=== PATIENT | female | born 1980 | race Caucasian/White ===

== ENCOUNTER 2018-11-07 08:37 | Inpatient (IN) | payer MEDICAID ==
[~2018-11-07] VITALS: Ht 152.4 cm; Wt 89.8 kg
[2018-11-07 08:37] VITALS: BP 164/109
--- NOTE | 2018-11-07 08:37 | NUR ---
BIBA FOR C/O ADULT ASTHMA EXACERBATION. PT 92% ON ROOM AIR AT HOME, TRIED TO MANAGE SYMPMTOMS AT HOME. PT PLACED ON CPAP IN FIELD AND GIVEN ALBUTEROL AND ATROVENT TREATMENT AND SATURATIONS AT 99% UPON ARRIVAL. PT TACHYCARDIC UPON ARRIVAL TO ED AT 133 WITH ELEVATED BP 164/109. PIV ESTABLISHED IN THE FIELD, 18G. LUNGS SOUNDS DIMINSHED, AUDIBLE WHEEZES NOTED.
[2018-11-07 08:39] VITALS: BP 164/109
[2018-11-07] MEDS ORDERED: methylPREDNISolone SS 125 MG/2 ML VIAL IVP ONE (08:40)
[2018-11-07] MEDS ORDERED: MAG SULF 2000 MG/WATER PREMIX 50 ML IV ONE ×2 (08:40→08:53)
[2018-11-07] MEDS ORDERED: NACL 0.9% 1,000 ML IV ONE (08:40)
[2018-11-07] MEDS ORDERED: ALBUTEROL SULFATE/IPRATROPIU 3 ML SOL IH ONE ×2 (08:45→13:40)
--- NOTE | 2018-11-07 08:48 | NUR ---
XRAY AT BEDSIDE
[2018-11-07] MEDS ORDERED: methylPREDNISolone SS 125 MG/2 ML VIAL ONE (08:51)
--- NOTE | 2018-11-07 09:00 | NUR ---
LAB AT BEDSIDE
--- NOTE | 2018-11-07 09:11 | NUR ---
ABG RESULTS GIVEN TO PHYSICIAN STATES NO CHANGES TO BIPAP AT THIS TIME. WILL CONTINUE TO MONITOR.
[2018-11-07 09:23] LABS: BASOPHILS % (AUTO) 0.3 % (0.0-2.0); EOSINOPHILS # (AUTO) 0.8 K/uL (0-0.4); EOSINOPHILS % (AUTO) 6.5 % (0.0-4.0); HEMATOCRIT 40.1 % (36-48); HEMOGLOBIN 12.9 g/dL (12.0-16.0); LYMPHOCYTES # (AUTO) 4.7 K/uL (2.5-16.5); MEAN CORPUSCULAR HEMOGLOBIN 25 pg (27-31); MEAN CORPUSCULAR HGB CONC 32 g/dL (33-37); MEAN CORPUSCULAR VOLUME 78.6 fL (80-94); MONOCYTES # (AUTO) 0.8 K/uL (0.8-1.0); MONOCYTES % (AUTO) 6.2 % (1.7-9.3); NEUTROPHILS # (AUTO) 6.1 K/uL (1.8-7.7); PLATELET COUNT (AUTO) 294 K/uL (140-450); RED BLOOD CELL COUNT(AUTO) 5.11 MIL/uL (4.20-5.40); RED CELL DISTRIBUTION WIDTH 14.3 % (11.6-13.7); WHITE BLOOD COUNT (AUTO) 12.4 K/uL (4.8-10.8)
--- NOTE | 2018-11-07 09:30 | NUR ---
TALKED TO PT'S BROTHER ON THE PHONE. UPDATED HIM ON PT'S STATUS. PT ALERT AND AND TO TALK, BREATHING LABORED BUT PT ABLE TO COMMUNICATE AT THIS TIME WITH SHORT SENTENCES.
--- NOTE | 2018-11-07 09:32 | NUR ---
UNABLE TO OBTAIN URINE SAMPLE AT THIS TIME.
[2018-11-07 09:34] LABS: ANION GAP 9.6 (8-16); CARBON DIOXIDE 26.3 mmol/L (21-32); CREATININE 0.6 mg/dL (0.6-1.3); POTASSIUM 3.9 mmol/L (3.5-5.1)
[2018-11-07 09:41] LABS: TOTAL BILIRUBIN 0.3 mg/dL (0.0-1.0)
[2018-11-07 09:47] LABS: PROTHROMBIN TIME 9.7 secs (10.8-13.4)
[2018-11-07] MEDS ORDERED: HYDROcodone/APAP 5/325 MG 1 TAB TAB PO PRN ×2 (10:20→20:00)
[2018-11-07] MEDS ORDERED: DOCUSATE SODIUM 100 MG GELCAP PO PRN (10:20)
[2018-11-07] MEDS ORDERED: ACETAMINOPHEN 325 MG TAB PO PRN (10:20)
[2018-11-07] MEDS ORDERED: MORPHINE SULFATE 2 MG/ML SYR IVP PRN (10:20)
[2018-11-07] MEDS ORDERED: LORazepam 2 MG/ML VIAL IM/IVP PRN (10:20)
[2018-11-07] MEDS ORDERED: ONDANSETRON 4 MG/2 ML VIAL IM/IVP PRN (10:20)
[2018-11-07] MEDS ORDERED: ZOLPIDEM 5 MG TAB PO PRN (10:20)
--- NOTE | 2018-11-07 10:45 | NUR ---
URINE SAMPLE COLLECTED VIA BEDPAN
[2018-11-07 11:02] LABS: CHOL/HDL RATIO 1.7 (1-4.5); MAGNESIUM 1.6 mg/dL (1.8-2.4)
[2018-11-07 11:03] LABS: FREE T4 (FREE THYROXINE) 0.98 ng/dL (0.76-1.46); THYROID STIMULATING HORMONE 5.45 uIU/mL (0.34-3.74)
--- NOTE | 2018-11-07 11:05 | NUR ---
Patient will be admitted to care of DR BIRMINGHAM. Admited to TELE. Will go to room 110A. Belongings list completed. Report to BRANDON COSTA.
[2018-11-07 11:11] VITALS: BP 151/91
[2018-11-07 11:14] LABS: BARBITURATE, URINE NEG. ng/ml (NEG <=200); BENZODIAZEPINE, URINE NEG. ng/mL (NEG <=200); CANNABINOID, URINE NEG. ng/mL (NEG <=50); COCAINE, URINE NEG. ng/mL (NEG <=300); OPIATE, URINE NEG. ng/mL (NEG <=2000); PHENCYCLIDINE SCREEN,URINE NEG. ng/mL (NEG <=25)
--- NOTE | 2018-11-07 11:15 | NUR ---
PATIENT WAS TRANSFERRED FROM ED IN [facility] WITH BIPAP. REPORT WAS GIVEN AT BEDSIDE. VS WAS TAKEN, MRSA WAS SWABBED, TUB OPERATOR WAS PLACED. PATIENT WAS AWAKE, ALERT. RESPIRATION LABOR, TACHYPNIC ON BIPAP, RT WAS AT BEDSIDE. SKIN DRY AND WARM. IV PATENT AND INTACT. PATIENT WAS ORIENTED TO ROOM, STAFF, AND CALL LIGHT. PLAN OF CARE WAS DISCUSSED WITH PATIENT. BED AT LOW POSITION, SIDE RAILS UP. CALL LIGHT WITHIN REACH
[2018-11-07 11:17] LABS: APPEARANCE,URINE HAZY (CLEAR); BILIRUBIN,URINE NEGATIVE (NEGATIVE); BLOOD, URINE 3+ (NEGATIVE); COLOR,URINE RED (YELLOW); LEUKOCYTE ESTERASE ,URINE TRACE (NEGATIVE); NITRITE, URINE POSITIVE (NEGATIVE); PH,URINE 5.5 (5.0-9.0); UGLUCOSE NEGATIVE (NEGATIVE)
[2018-11-07] MEDS: ALBUTEROL SULFATE/IPRATROPIU 3 ML SOL IH PRN ×2 (11:19→16:59)
[2018-11-07 11:26] LABS: RBC,URINE TOO NUMEROUS TO COUN /HPF (0-5)
[2018-11-07 11:29] LABS: WBC,URINE 0-5 /HPF (0-5)
[2018-11-07] MEDS: NACL 0.9% 1,000 ML IV SCH (11:40)
[2018-11-07] MEDS ORDERED: NIFEdipine 30 MG TABER PO SCH (12:00)
--- NOTE | 2018-11-07 13:00 | NUR ---
PATIENT WAS RESTING COMFORTABLY ON BIPAP. MED WAS GIVEN PER ORDER. NO DISTRESS NOTED AT THIS TIME
[2018-11-07] MEDS: ALBUTEROL SULFATE/IPRATROPIU 3 ML SOL IH SCH ×2 (14:23→18:55)
[2018-11-07 16:00] VITALS: BP 131/71
--- NOTE | 2018-11-07 16:00 | NUR ---
PT AWAKE, ALERT. RESPIRATIONS EVEN, UNLABORED ON BIPAP. C/O HEADACHE 11/25. WILL MEDICATE PER ORDER. CALL LIGHT WITHIN REACH.
--- NOTE | 2018-11-07 17:25 | NUR ---
PATIENT TAKEN OFF BI PAP FOR EVENING MEAL PLACED PATIENT ON O2 AT 4 LPM VIA OXIMIZER. JULISSA TAYLOR WAS NOTIFIED.
--- NOTE | 2018-11-07 18:00 | NUR ---
PT AWAKE, ALERT. RESPIRATIONS EVEN AND UNLABORED ON 4L OXIMIZER. IV PATENT AND INTACT. FAMILY AT BEDSIDE. NO DISTRESS NOTED AT THIS TIME. CALL LIGHT WITHIN REACH.
--- NOTE | 2018-11-07 19:14 | NUR ---
RECEIVED PATIENT ON 4L OXYMIZER, PULSE OX SAT 97%. PATIENT COMPLAINING OF SHORTNESS OF BREATH. PATIENT PLACED ON BIPAP WITH MEDIUM MASK AT ST SETTINGS: 14/6, 14, 35%. TOLERATING BIPAP WELL. BIPAP CHECK DONE. BIPAP ALARMS ON AND AUDIBLE. SKIN INTACT, NO REDNESS. SCHEDULED BREATHING TREATMENT ADMINISTERED IN-LINE WITH NIPPV. TOLERATED TREATMENT WELL WITHOUT ADVERSE SIDE EFFECTS. PATIENT ON CONTINUOUS PULSE OX MONITOR. FAMILY AT BEDSIDE. WILL CONTINUE TO MONITOR.
--- NOTE | 2018-11-07 19:16 | NUR ---
ENDORSEMENT GIVEN TO RESTAURANT DELIVERY DRIVER NURSE. PATIENT IS STABLE AT THIS TIME
--- NOTE | 2018-11-07 19:17 | NUR ---
REPORT RECEIVED FROM AM NURSE AT BEDSIDE. PT IN STABLE CONDITION. AAOX4. INTRODUCED SELF TO PT. BOARD UPDATED. NO COMPLAINTS OF PAIN. NO SOB. PT ON BIPAP. AFEBRILE. IV SITE L AC 20G RUNNING NS@50ML/HR PATENT AND INTACT. SKIN WARM, DRY, AND INTACT WITH NO OPEN WOUNDS. BED LOCKED IN LOW POSITION. CALL LEÓN WITHIN REACH. SAFETY PRECAUTIONS IN PLACE. ALL NEEDS MET AT THIS TIME.
[2018-11-07] MEDS ORDERED: KETOROLAC 15 MG/ML VIAL IM PRN (19:55)
[2018-11-07 20:05] VITALS: BP 114/82
[2018-11-07] MEDS: methylPREDNISolone SS 125 MG/2 ML VIAL IVP SCH (20:06)
--- NOTE | 2018-11-07 20:06 | NUR ---
SOLU-MEDROL GIVEN AT THIS TIME.
--- NOTE | 2018-11-07 21:08 | NUR ---
BIPAP CHECK DONE. PATIENT TAKEN OFF BIPAP FOR MD ASSESSMENT AND THEN TAKEN OFF UNIT FOR CT SCAN.
--- NOTE | 2018-11-07 21:30 | NUR ---
PT C/O NUMBNESS AND TINGLING IN ALL 4 EXTREMITIES AND SLIGHT CHEST PRESSURE. MD WAS NOTIFIED. MD IN TO ASSESS THE PT. NEW ORDERS PUT IN.
--- NOTE | 2018-11-07 21:40 | NUR ---
PATIENT RETURNED TO UNIT. PATIENT DOES NOT APPEAR IN DISTRESS. PATIENT WOULD NOT LIKE TO BE ON BIPAP AT THIS TIME. PLACED PATIENT ON OXYMIZER AT 3L, PULSE OX SAT 96%. WILL CONTINUE TO MONITOR.
[2018-11-07] MEDS ORDERED: KETOROLAC 30 MG/ML VIAL IM SCH (22:00)
--- NOTE | 2018-11-07 22:01 | NUR ---
PT SITTING UP IN CHAIR. ROCEPHIN HUNG, HEPARIN AND TORADOL GIVEN FOR 6/10 PAIN. WILL CONTINUE TO MONITOR.
[2018-11-07] MEDS ORDERED: cefTRIAXone 1,000 MG VIAL ONE (22:08)
--- NOTE | 2018-11-08 | NUR ---
VITALS TAKEN. PT LAYING IN BED SLEEPING, EASILY AROUSABLE. PT ON 3L OXYMIZER, SAFETY PRECAUTIONS IN PLACE. WILL CONTINUE TO MONITOR.
[2018-11-08 00:02] VITALS: BP 115/68
[2018-11-08] MEDS: NACL 0.9% 1,000 ML IV SCH ×2 (00:20→21:33)
--- NOTE | 2018-11-08 00:29 | NUR ---
PT DRY HEAVING, ZOFRAN GIVEN AT THIS TIME.
--- NOTE | 2018-11-08 02:00 | NUR ---
PT SLEEPING IN BED, CONNECTED TO 3L OXYMIZER AND CONTINUOUS PULSE OX. NO S/S OF DISTRESS. BREATHING EQUAL AND UNLABORED. SAFETY PRECAUTIONS IN PLACE, CALL LIGHT WITHIN REACH. WILL CONTINUE TO MONITOR.
[2018-11-08 04:02] VITALS: BP 114/67
--- NOTE | 2018-11-08 04:10 | NUR ---
PT UP AND AMBULATED TO THE BATHROOM. VITALS TAKEN. NO C/O DISCOMFORT. SAFETY PRECAUTIONS IN PLACE, BED IN LOW POSITION. ON 3L OXYMIZER. CALL LIGHT WITH IN REACH. WILL CONTINUE TO MONITOR.
[2018-11-08] MEDS: methylPREDNISolone SS 125 MG/2 ML VIAL IVP SCH ×3 (05:14→21:24)
[2018-11-08 06:52] LABS: BASOPHILS % (AUTO) 0.2 % (0.0-2.0); HEMATOCRIT 37.6 % (36-48); HEMOGLOBIN 12.4 g/dL (12.0-16.0); LYMPHOCYTES # (AUTO) 1.4 K/uL (2.5-16.5); LYMPHOCYTES % (AUTO) 9.5 % (20.5-51.1); MEAN CORPUSCULAR HEMOGLOBIN 26 pg (27-31); MEAN CORPUSCULAR HGB CONC 33 g/dL (33-37); MEAN CORPUSCULAR VOLUME 78.1 fL (80-94); MONOCYTES # (AUTO) 0.3 K/uL (0.8-1.0); MONOCYTES % (AUTO) 1.8 % (1.7-9.3); NEUTROPHILS # (AUTO) 12.9 K/uL (1.8-7.7); NEUTROPHILS % (AUTO) 88.5 % (42.2-75.2); PLATELET COUNT (AUTO) 243 K/uL (140-450); RED BLOOD CELL COUNT(AUTO) 4.81 MIL/uL (4.20-5.40); RED CELL DISTRIBUTION WIDTH 14.3 % (11.6-13.7); WHITE BLOOD COUNT (AUTO) 14.6 K/uL (4.8-10.8)
--- NOTE | 2018-11-08 07:19 | NUR ---
REPORT GIVEN TO AM NURSE AT BEDSIDE. PT IN STABLE CONDITION.
--- NOTE | 2018-11-08 07:20 | NUR ---
RECEIVED ENDORSEMENT FROM DISC PAD PLATE FILLER NURSE. PT IS SLEEPING, EASILY AROUSABLE. AAOX4, MALAGASY SPEAKING. RESPIRATIONS ARE EVEN AND UNLABORED ON 3L OXYMIZER. LEFT AC IV INTACT, PATENT, AND INFUSING IVF. PT DENIES ANY PAIN AT THIS TIME. PLAN OF CARE WAS REVIEWED WITH PATIENT. PATIENT VERBALIZED UNDERSTANDING. SAFETY MEASURES IN PLACE, CALL LIGHT WITHIN REACH. WILL CONTINUE TO MONITOR.
[2018-11-08] MEDS: ALBUTEROL SULFATE/IPRATROPIU 3 ML SOL IH SCH ×3 (07:39→19:17)
[2018-11-08 07:48] LABS: ANION GAP 9.9 (8-16); CARBON DIOXIDE 25.3 mmol/L (21-32); CREATININE 0.6 mg/dL (0.6-1.3); POTASSIUM 4.2 mmol/L (3.5-5.1)
[2018-11-08 07:52] LABS: MAGNESIUM 2.1 mg/dL (1.8-2.4); PHOSPHORUS 2.7 mg/dL (2.5-4.9)
[2018-11-08 08:00] VITALS: BP 101/46
--- NOTE | 2018-11-08 08:10 | NUR ---
PATIENT HAS BEEN SCREENED AND CATEGORIZED LOW NUTRITION RISK. PATIENT WILL BE SEEN WITHIN 7 DAYS OF ADMISSION. 11/13/[address]
[2018-11-08] MEDS ORDERED: NIFEdipine 30 MG TABER PO SCH (09:00)
[2018-11-08] MEDS ORDERED: cloNIDine 0.1 MG TAB PO PRN (09:25)
[2018-11-08] MEDS: LACTOBACILLUS RHAMNOSUS GG 1 EACH CAP PO SCH (09:31)
--- NOTE | 2018-11-08 09:40 | NUR ---
ADMINISTERED SCHEDULED MEDICATIONS. PATIENT C/O OF HEADACHE 6/10 PAIN. ADMINISTERED PRN NORCO PO. WILL CONTINUE TO MONITOR.
[2018-11-08 12:00] VITALS: BP 96/62
--- NOTE | 2018-11-08 12:05 | NUR ---
PATIENT RESTING IN BED, DENIES ANY SOB. DENIES PAIN AT THIS TIME. WILL CONTINUE TO MONITOR.
--- NOTE | 2018-11-08 13:01 | NUR ---
PHYSICAL THERAPIST AT BEDSIDE PERFORMING EVALUATION. WILL CONTINUE TO MONITOR.
--- NOTE | 2018-11-08 15:06 | NUR ---
PATIENT RESTING IN BED. DENIES PAIN OR SOB AT THIS TIME. WILL CONTINUE TO MONITOR.
[2018-11-08 16:00] VITALS: BP 106/64
--- NOTE | 2018-11-08 17:15 | NUR ---
PATIENT WATCHING TV. NO DISTRESS NOTED. CONDITION UNCHANGED. WILL CONTINUE TO MONITOR.
--- NOTE | 2018-11-08 18:00 | NUR ---
PATIENT AMBULATING AROUND MST HALLWAYS WITH STEADY GAIT. WILL CONTINUE TO MONITOR.
--- NOTE | 2018-11-08 19:30 | NUR ---
JUAN CE ENDORSEMENT TO SENIOR MEDICAL DIRECTOR NURSE. PATIENT IS STABLE.
--- NOTE | 2018-11-08 19:31 | NUR ---
RECEIVED BEDSIDE REPORT FROM GAGANDEEP SY. PT A/O X4. SPEAKS CITIZEN OF [place]. ABLE TO MAKE NEEDS KNOWN. OXIMIZER @1L. NO SIGNS OF DISTRESS. AMBULATES. STEADY GAIT. SKIN INTACT. L AC 20G NS @50. IV SITE INTACT AND PATENT. REG DIET. NKA. BED IN LOW POSITION. CALL LIGHT WITHIN REACH.
--- NOTE | 2018-11-08 19:50 | NUR ---
PT MOVED TO ROOM 112A DUE TO AIR CONDITIONER NOT WORKING IN ROOM 110A.
[2018-11-08 20:00] VITALS: BP 118/70
--- NOTE | 2018-11-08 21:00 | NUR ---
PT ON 3L OXYMIZER. ADMINISTERED MEDS SCHEDULED. EDUCATED ON SIDE EFFECTS. VERBALIZED UNDERSTANDING. NO SIGNS OF DISTRESS. TOLERATING WELL. WILL CONTINUE TO MONITOR.
[2018-11-08] MEDS: ALBUTEROL SULFATE/IPRATROPIU 3 ML SOL IH PRN (22:38)
--- NOTE | 2018-11-08 23:00 | NUR ---
PT SEEN BY RT. OXIMIZER NOW AT 2L. NO SIGNS OF DISTRESS OR DISCOMFORT. WILL CONTINUE TO MONITOR.
[2018-11-09] VITALS: BP 116/70
--- NOTE | 2018-11-09 01:00 | NUR ---
PT SLEEPING IN BED NO SIGNS OF DISTRESS OR DISCOMFORT. EASILY AROUSABLE. NO COMPLAINTS AT THIS TIME. WILL CONTINUE TO MONITOR.
--- NOTE | 2018-11-09 02:45 | NUR ---
SLEEPING IN BED. EASILY AROUSABLE. BED IN LOW POSITION. CALL LIGHT WITHIN REACH. WILL CONTINUE TO MONITOR.
[2018-11-09 04:00] VITALS: BP 130/81
--- NOTE | 2018-11-09 04:00 | NUR ---
VITALS TAKEN. TOLERATED WELL. NO SIGNS OF DISTRESS OR DISCOMFORT. VITALS WNL. WILL CONTINUE TO MONITOR.
[2018-11-09] MEDS: methylPREDNISolone SS 125 MG/2 ML VIAL IVP SCH (04:59)
--- NOTE | 2018-11-09 06:00 | NUR ---
PT ASLEEP IN BED EASILY AROUSABLE. NO PAIN . NO COMPLAINTS AT THIS TIME. NO DISTRESS NOTED. WILL CONTINUE TO MONITOR.
[2018-11-09 06:37] LABS: ANION GAP 11.9 (8-16); CARBON DIOXIDE 26.3 mmol/L (21-32); CREATININE 0.6 mg/dL (0.6-1.3); POTASSIUM 4.2 mmol/L (3.5-5.1)
[2018-11-09 06:40] LABS: PHOSPHORUS 2.2 mg/dL (2.5-4.9)
[2018-11-09 06:41] LABS: HEMATOCRIT 35.8 % (36-48); HEMOGLOBIN 11.6 g/dL (12.0-16.0); LYMPHOCYTES % (AUTO) 7.2 % (20.5-51.1); MEAN CORPUSCULAR HEMOGLOBIN 25 pg (27-31); MEAN CORPUSCULAR HGB CONC 32 g/dL (33-37); MEAN CORPUSCULAR VOLUME 78.5 fL (80-94); MONOCYTES # (AUTO) 0.4 K/uL (0.8-1.0); MONOCYTES % (AUTO) 3.2 % (1.7-9.3); NEUTROPHILS # (AUTO) 12.3 K/uL (1.8-7.7); NEUTROPHILS % (AUTO) 89.6 % (42.2-75.2); PLATELET COUNT (AUTO) 253 K/uL (140-450); RED BLOOD CELL COUNT(AUTO) 4.56 MIL/uL (4.20-5.40); RED CELL DISTRIBUTION WIDTH 14.5 % (11.6-13.7); WHITE BLOOD COUNT (AUTO) 13.8 K/uL (4.8-10.8)
[2018-11-09] MEDS: ALBUTEROL SULFATE/IPRATROPIU 3 ML SOL IH SCH ×3 (07:18→19:22)
--- NOTE | 2018-11-09 07:30 | NUR ---
ENDORSED PT TO DAYSHIFT RN JAME. PT IN STABLE CONDITION.
--- NOTE | 2018-11-09 07:31 | NUR ---
RECEIVED ENDORSEMENT FROM SAPPHIRE STYLUS GRINDER NURSE. PATIENT IS SLEEPING EASILY AROUSABLE, AAOX4, SAMMARINESE SPEAKING. RESPIRATIONS ARE EVEN AND UNLABORED ON 2L OXYMIZER. LEFT AC 20 G INTACT, PATENT, AND INFUSING IVF. DENIES PAIN AT THIS TIME. PLAN OF CARE WAS REVIEWED WITH PATIENT. PATIENT VERBALIZED UNDERSTANDING. SAFETY MEASURES IN PLACE, CALL LIGHT WITHIN REACH. WILL CONTINUE TO MONITOR.
[2018-11-09 08:00] VITALS: BP 137/79
[2018-11-09] MEDS ORDERED: BISACODYL 5 MG TABEC PO SCH (08:30)
[2018-11-09] MEDS ORDERED: SODIUM PHOS / POTASSIUM PHOS 1 PKT PDR PO SCH (08:30)
[2018-11-09] MEDS: LACTOBACILLUS RHAMNOSUS GG 1 EACH CAP PO SCH (08:49)
--- NOTE | 2018-11-09 09:00 | NUR ---
ADMINISTERED SCHEDULED MEDICATIONS. PATIENT RESTING IN BED. DENIES SOB OR PAIN. WILL CONTINUE TO MONITOR.
--- NOTE | 2018-11-09 11:20 | NUR ---
PATIENT STABLE. SLEEPING BUT EASILY AROUSABLE. NO SIGNS OF DISTRESS NOTED. NO OTHER NEEDS AT THIS TIME.
[2018-11-09 12:00] VITALS: BP 124/76
[2018-11-09] MEDS: methylPREDNISolone SS 40 MG/ML VIAL IVP SCH ×2 (13:13→21:07)
--- NOTE | 2018-11-09 13:17 | NUR ---
ADMINISTERED SCHEDULED MEDICATIONS. PATIENT IS RESTING IN BED. NO DISTRESS NOTED. DENIES ANY PAIN OR SOB. WILL CONTINUE TO MONITOR.
--- NOTE | 2018-11-09 15:57 | NUR ---
PATIENT SITTING ON THE BED. PATIENT STABLE, NO OTHER NEEDS AT THIS TIME.
[2018-11-09 16:00] VITALS: BP 117/78
--- NOTE | 2018-11-09 16:30 | NUR ---
VITAL SIGNS TAKEN, PT STABLE. ENDORSED PT TO RN JADON FOR CONTINUITY OF CARE.
--- NOTE | 2018-11-09 16:50 | NUR ---
RECEIVED REPORT REGARDING PT FROM AM NURSE ON DUTY, PT IS AWAKE AND ALERT AND LYING ON THE BED WITH O2 VIA NC IN PLACE, IV LINE INTACT. PT DENIES PAIN AND NO SOB NOTED. WILL MONITOR PT.
[2018-11-09] MEDS: NACL 0.9% 1,000 ML IV SCH (18:57)
--- NOTE | 2018-11-09 19:30 | NUR ---
ENDORSED PT TO PRESS BREAKER NURSE FOR CONTINUITY OF CARE.
--- NOTE | 2018-11-09 19:31 | NUR ---
RECEIVED REPORT FROM AM NURSE. PT SITTING UP IN BED, AWAKE ALERT AND ORIENTED. LEFT FORE ARM 20 G INTACT AND INFUSING WELL. ON 3L N.C . NO C/O DISCOMFORT. SAFETY PRECAUTIONS IN PLACE, BED IN LOW POSITION, CALL LIGHT WITHIN REACH. WILL CONTINUE TO MONITOR.
[2018-11-09 20:00] VITALS: BP 123/81
--- NOTE | 2018-11-09 22:15 | NUR ---
PT SLEEPING IN BED, EASILY AROUSABLE. NO VISIBLE SIGNS OF DISTRESS. PT ON 3L 02 VIA N.C. BREATHING EQUAL AND UNLABORED. BED IN LOW POSITION, CALL LIGHT WITHIN REACH. WILL CONTINUE TO MONITOR.
[2018-11-10 00:05] VITALS: BP 150/84
--- NOTE | 2018-11-10 00:15 | NUR ---
VITALS TAKEN. PT AWAKE IN BED. PT WAS BROUGHT WATER, REQUESTED. BED IN LOW POSITION, CALL LIGHT WITHIN REACH. ALL NEEDS ATTENDED TO. WILL CONTINUE TO MONITOR
--- NOTE | 2018-11-10 02:00 | NUR ---
PT SLEEPING IN BED. CONNECTED 2L O2 N.C. BREATHING EQUAL AND UNLABORED. BED IN LOW POSITION, CALL LIGHT WITHIN REACH. WILL CONTINUE TO MONITOR.
[2018-11-10 04:00] VITALS: BP 145/87
--- NOTE | 2018-11-10 04:00 | NUR ---
VITALS TAKEN. PT SLEEPING RIGHT LATERAL, EASILY AROUSABLE. NO VISIBLE SIGNS OF DISTRESS. BED IN LOW POSITION, CALL LIGHT WITHIN REACH. WILL CONTINUE TO MONITOR.
[2018-11-10] MEDS: methylPREDNISolone SS 40 MG/ML VIAL IVP SCH ×2 (05:11→12:05)
--- NOTE | 2018-11-10 06:01 | NUR ---
PT IN BED, AWAKE, ALERT AND ORIENTED. CONNECTED TO 2L O2 VIA N.C. NO C/O DISCOMFORT. ALL NEEDS ATTENDED TO. WILL ENDORSE TO AM NURSE FOR CONTINUITY OF CARE.
[2018-11-10] MEDS: ALBUTEROL SULFATE/IPRATROPIU 3 ML SOL IH SCH ×2 (06:29→13:00)
--- NOTE | 2018-11-10 07:20 | NUR ---
RECEIVED PT FROM MEDICAL AFFAIRS MANAGER NURSE, ASLEEP LYING ON THE BED, WITH SIDE RAILS UP, KAVYA LIGHT WITHIN REACH, PT IS ON 2L O2 THROUGH NC, PT HAS 20 G IV LINE ON LEFT FOREARM RUNNING WITH 50ML NS, RESPIRATION OBSERVED TO BE EVEN AND UNLABORED
[2018-11-10] MEDS ORDERED: BISACODYL 5 MG TABEC PO PRN (07:35)
[2018-11-10 07:42] LABS: EOSINOPHILS % (AUTO) 0.1 % (0.0-4.0); HEMOGLOBIN 11.3 g/dL (12.0-16.0); LYMPHOCYTES # (AUTO) 1.2 K/uL (2.5-16.5); MEAN CORPUSCULAR HEMOGLOBIN 25 pg (27-31); MEAN CORPUSCULAR HGB CONC 32 g/dL (33-37); MEAN CORPUSCULAR VOLUME 78.4 fL (80-94); MONOCYTES # (AUTO) 0.5 K/uL (0.8-1.0); MONOCYTES % (AUTO) 4.2 % (1.7-9.3); NEUTROPHILS # (AUTO) 9.6 K/uL (1.8-7.7); PLATELET COUNT (AUTO) 250 K/uL (140-450); RED BLOOD CELL COUNT(AUTO) 4.46 MIL/uL (4.20-5.40); WHITE BLOOD COUNT (AUTO) 11.2 K/uL (4.8-10.8)
[2018-11-10 08:00] VITALS: BP 138/69
[2018-11-10 08:02] LABS: ANION GAP 9.8 (8-16); CARBON DIOXIDE 26.9 mmol/L (21-32); CREATININE 0.6 mg/dL (0.6-1.3); POTASSIUM 3.7 mmol/L (3.5-5.1)
[2018-11-10 08:08] LABS: MAGNESIUM 1.9 mg/dL (1.8-2.4)
[2018-11-10] MEDS: LACTOBACILLUS RHAMNOSUS GG 1 EACH CAP PO SCH (08:13)
--- NOTE | 2018-11-10 08:18 | NUR ---
PT IS AWAKE AND SEATED ON THE BED, TALKING TO FAMILY, MEDICATIONS WERE GIVEN PARAMETERS CHECKED AND PT TOLERATED IT. NO SIGN OF DISTRESS NOTED AND WILL MONITOR PT.
[2018-11-10 08:38] LABS: LYMPHOCYTES % (AUTO) 10.4 % (20.5-51.1); NEUTROPHILS % (AUTO) 85.3 % (42.2-75.2)
--- NOTE | 2018-11-10 10:15 | NUR ---
CHECKED PT IN ROOM. PT SLEEPING, RESPIRATIONS OBSERVED TO BE EVEN AND UNLABORED. WILL CONTINUE TO MONITOR BREATHING AND WILL CONTINUE CARDIAC MONITORING.
[2018-11-10] MEDS ORDERED: BENZONATATE 100 MG CAPLF PO SCH (11:30)
--- NOTE | 2018-11-10 11:33 | NUR ---
PT WAS WEANED OUT OF O2 AND VITAL SIGNS WAS TAKEN AND BP IS122/70, PULSE IS 76, TEMPERATURE IS 98, O2 SATURATION IS BETWEEN 94%-98% AND RESPIRATION IS 18/MIN, PT DENIES SOB AND PAIN AND NO SIGN OF DISTRESS NOTED, INFORMED DR. GALAVIZ OF THE RESULTS TAKEN.
--- NOTE | 2018-11-10 11:45 | NUR ---
PT IS AWAKE WEANED OUT FROM O2. ORAL MEDICATION WAS GIVEN, AND TOLERATED WELL. NO SIGN OF DISTRESS NOTED. WILL CONTINUE TO MONITOR PT.
[2018-11-10] MEDS ORDERED: PRED20TA5 PO ×2 (11:50→12:30)
[2018-11-10] MEDS ORDERED: BUDE1AER IH ×2 (11:50→12:30)
[2018-11-10 12:00] VITALS: BP 122/70
--- NOTE | 2018-11-10 12:09 | NUR ---
PT IS AWAKE AND SEATED ON THE BED, EATING HERB LUNCH, IV MEDICATION WAS GIVEN, PT IS SATURATING AT 95%, NO SIGN OF DISTRESS NOTED AND WILL MONITOR PT.
[2018-11-10] MEDS ORDERED: ALBU0.5S1 NEB ×2 (12:14→12:30)
[2018-11-10] MEDS ORDERED: AZIT250T3 PO ×2 (12:22→12:30)
--- NOTE | 2018-11-10 13:26 | NUR ---
PT GOING HOME NO TX GIVEN AT THIS TIME
--- NOTE | 2018-11-10 13:28 | NUR ---
DISCHARGED INSTRUCTIONS, TEACHINGS AND PRESCRIPTION INSTRUCTIONS WERE GIVEN TO PT PER PICKLE SORTER OK #[id number], PT VERBALIZED UNDERSTANDING. WILL MONITOR PT.
--- NOTE | 2018-11-10 14:15 | NUR ---
DISCHARGED PT VIA WHEELCHAIR ACCOMPANIED BY FRIEND, TEACHINGS AND INSTRUCTIONS GIVEN TO PT AND VERBALIZED UNDERSTANDING. IV AND ARM BANDS REMOVED. PT IS STABLE AT THIS TIME.
[2018-11-10] MEDS: NACL 0.9% 1,000 ML IV SCH (14:57)
[2018-11-10] MEDS ORDERED: AZITHROMYCIN 250 MG TAB PO SCH (15:00)
== END 2018-11-10 14:15 | disposition home or self-care (01) | DRG 720 ==
LOC: MED 08:37 → MTU 10:17
PROVIDERS: ADMIT General Practice; ATTEND General Practice
PROC: 5A09357 Assistance with Respiratory Ventilation, Less than 24 Consecutive Hours, Continuous Positive Airway Pressure (ICD-10-PCS; principal; 2018-11-07)
DX: A41.9 Sepsis, unspecified organism (principal); J96.01 Acute respiratory failure with hypoxia; E44.0 Moderate protein-calorie malnutrition; J45.901 Unspecified asthma with (acute) exacerbation; E66.2 Morbid (severe) obesity with alveolar hypoventilation; E83.39 Other disorders of phosphorus metabolism; E83.42 Hypomagnesemia; I16.0 Hypertensive urgency; Z68.38 Body mass index [BMI] 38.0-38.9, adult; N39.0 Urinary tract infection, site not specified; E02 Subclinical iodine-deficiency hypothyroidism; G62.9 Polyneuropathy, unspecified; T38.0X5A Adverse effect of glucocorticoids and synthetic analogues, initial encounter; Y92.89 Other specified places as the place of occurrence of the external cause; M54.2 Cervicalgia
CPT/HCPCS: 36415; 70450; 71045; 80048; 80053; 80305; 81001; 82150; 83036; 83605; 83690; 83735; 83880; 84100; 84439; 84443; 84484; 85025; 85610; 85730; 87040; 87081; 87086; 93005; 94640; 94660; 96365; 96366; 96375; 99291; C1758; J0696; J1644; J1885; J2405; J2920; J2930; J3475; J7030; J7060; J7620; Q0092

== ENCOUNTER 2019-03-29 21:17 | Emergency (ER) | payer MEDICAID ==
[~2019-03-29] VITALS: Ht 154.9 cm; Wt 87.5 kg
[~2019-03-29 21:17] MED LIST: ALBU0.5S1 NEB; AZIT250T3 PO; BUDE1AER IH; PRED20TA5 PO
[2019-03-29 21:22] VITALS: BP 146/83
[2019-03-29] MEDS ORDERED: ONDANSETRON 4 MG ODT PO ONE (22:15)
[2019-03-29] MEDS ORDERED: ALBUTEROL SULFATE/IPRATROPIU 3 ML SOL IH ONE (22:15)
[2019-03-29] MEDS ORDERED: KETOROLAC 30 MG/ML VIAL IM ONE (23:10)
[2019-03-29 23:33] VITALS: BP 132/87
== END 2019-03-29 23:33 | disposition home or self-care (01) ==
LOC: MED 21:17
DX: R10.31 Right lower quadrant pain (principal); R11.0 Nausea; J45.909 Unspecified asthma, uncomplicated; I10 Essential (primary) hypertension; Z79.899 Other long term (current) drug therapy
CPT/HCPCS: 74022; 81002; 81025; 94640; 96372; 99283; J1885; J7620; Q0162

== ENCOUNTER 2019-06-10 14:19 | Inpatient (IN) | payer MEDICAID ==
[~2019-06-10] VITALS: Ht 152.4 cm; Wt 77.1 kg
[2019-06-10 14:30] VITALS: BP 141/82
--- NOTE | 2019-06-10 14:31 | NUR ---
pt ambulated to ER bed 11
[2019-06-10] MEDS ORDERED: EPINEPHrine 1:1000 - 1 MG/ML AMP SUBQ ONE (14:40)
[2019-06-10] MEDS ORDERED: ALBUTEROL SULFATE/IPRATROPIU 3 ML SOL IH ONE (14:40)
[2019-06-10] MEDS ORDERED: methylPREDNISolone SS 125 MG/2 ML VIAL IVP ONE (14:40)
[2019-06-10] MEDS ORDERED: LORazepam 2 MG/ML VIAL IVP ONE (14:40)
[2019-06-10] MEDS ORDERED: diphenhydrAMINE 50 MG/ML VIAL IVP ONE (14:40)
[2019-06-10] MEDS ORDERED: ONDANSETRON 4 MG/2 ML VIAL IVP ONE (14:40)
[2019-06-10] MEDS ORDERED: FAMOTIDINE 20 MG/2 ML VIAL IVP ONE (14:40)
--- NOTE | 2019-06-10 14:46 | NUR ---
BIB SELF C/O SOB X 1 DAY, WORSE TODAY. LABORED RESPIRATIONS, ACCESSORY MUSCLE USE, ANXIETY NO PAIN, NO FEVER PMH: ALLERGIES, DIABETES, HTN USES INHALER AT HOME NKA
[2019-06-10] MEDS ORDERED: NACL 0.9% 1,000 ML IV ONE (15:05)
--- NOTE | 2019-06-10 15:48 | NUR ---
XRAY AT BEDSIDE
[2019-06-10 16:02] LABS: BASOPHILS % (AUTO) 0.2 % (0.0-2.0); EOSINOPHILS # (AUTO) 0.1 K/uL (0-0.4); EOSINOPHILS % (AUTO) 0.8 % (0.0-4.0); HEMATOCRIT 41.8 % (36-48); HEMOGLOBIN 13.7 g/dL (12.0-16.0); LYMPHOCYTES # (AUTO) 0.9 K/uL (2.5-16.5); LYMPHOCYTES % (AUTO) 7.4 % (20.5-51.1); MEAN CORPUSCULAR HEMOGLOBIN 27 pg (27-31); MEAN CORPUSCULAR HGB CONC 33 g/dL (33-37); MEAN CORPUSCULAR VOLUME 82.1 fL (80-94); MONOCYTES # (AUTO) 0.6 K/uL (0.8-1.0); MONOCYTES % (AUTO) 5.2 % (1.7-9.3); NEUTROPHILS # (AUTO) 9.9 K/uL (1.8-7.7); NEUTROPHILS % (AUTO) 86.4 % (42.2-75.2); PLATELET COUNT (AUTO) 247 K/uL (140-450); RED BLOOD CELL COUNT(AUTO) 5.09 MIL/uL (4.20-5.40); RED CELL DISTRIBUTION WIDTH 14.5 % (11.6-13.7); WHITE BLOOD COUNT (AUTO) 11.5 K/uL (4.8-10.8)
--- NOTE | 2019-06-10 16:16 | NUR ---
PATIENT RESTING IN BED. NO REPORTS OF SOB NOTED
[2019-06-10 16:29] LABS: ANION GAP 12.4 (8-16); CARBON DIOXIDE 26.2 mmol/L (21-32); CREATININE 0.6 mg/dL (0.6-1.3); POTASSIUM 3.6 mmol/L (3.5-5.1)
[2019-06-10 16:36] LABS: PROTHROMBIN TIME 9.8 secs (10.8-13.4)
[2019-06-10 16:41] LABS: ALBUMIN 3.2 g/dL (3.4-5.0); TOTAL BILIRUBIN 0.7 mg/dL (0.0-1.0)
--- NOTE | 2019-06-10 17:30 | NUR ---
Note jane in EDM - 06/10/19 at 1845 by [email or web address] Patient discharged with v/s stable. Written and verbal after care instructions given and explained. Patient alert, oriented and verbalized understanding of instructions. Ambulatory with steady gait. All questions addressed prior to discharge. ID band removed. Patient advised to follow up with PMD. Rx of ALBUTEROL, VISTARIL, FAMOTIDINE, PREDNISONE given. Patient educated on indication of medication including possible reaction and side effects. Opportunity to ask questions provided and answered.
--- NOTE | 2019-06-10 17:45 | NUR ---
PT REQUESTING TO SEE DR HARKINS REGARDING DISCHARGE.
--- NOTE | 2019-06-10 17:50 | NUR ---
DR HARKINS SPOKE WITH PATIENT. PT TO BE ADMITTED FOR STATUS ASTHMATICUS, PT AGREED TO ADMISSION. WILL BEGIN ADMISSION PROCESS AT THIS TIME.
[2019-06-10] MEDS ORDERED: MAG SULF 2000 MG/WATER PREMIX 50 ML IV ONE (18:25)
[2019-06-10] MEDS ORDERED: DEXAMETHASONE 10 MG/ML VIAL IVP ONE (18:25)
[2019-06-10] MEDS ORDERED: ACETAMINOPHEN 325 MG TAB PO PRN (18:35)
[2019-06-10] MEDS ORDERED: LORazepam 2 MG/ML VIAL IM/IVP PRN (18:35)
[2019-06-10] MEDS ORDERED: ZOLPIDEM 5 MG TAB PO PRN (18:35)
[2019-06-10] MEDS ORDERED: MORPHINE SULFATE 2 MG/ML SYR IVP PRN (18:35)
[2019-06-10] MEDS ORDERED: ONDANSETRON 4 MG/2 ML VIAL IM/IVP PRN (18:35)
[2019-06-10] MEDS ORDERED: DOCUSATE SODIUM 100 MG GELCAP PO PRN (18:35)
--- NOTE | 2019-06-10 19:05 | NUR ---
RECEIVED BEDSIDE REPORT FROM ER NURSE, PT STABLE, NO DISTRESS NOTED, IV TO R AC 20G PATENT INTACT, INFUSING WELL, PT ON ROOM AIR, PT STATED HAVING DIFFICULTY BREATHING, WHEEZING SOUND CAN BE HEARD, 2LPM O2 VIA NC ADMINISTERED, PT TOLERATED WELL, ORIENT PT TO ROOM, BED, CALL LIGHT, MRSA SWAB TAKEN, INITIAL ASSESSMENT DONE, ALL SAFETY PRECAUTION MET, CALL LIGHT WITHIN REACH, WILL CONTINUE TO MONITOR.
--- NOTE | 2019-06-10 19:09 | NUR ---
Patient will be admitted to care of DR BIRMINGHAM. Admited to TELE. Will go to room 125B. Belongings list completed. Report to MEGA Chambers
[2019-06-10 19:30] VITALS: BP 149/87
[2019-06-10 19:46] LABS: CHOL/HDL RATIO 4.6 (1-4.5); MAGNESIUM 1.9 mg/dL (1.8-2.4); PHOSPHORUS 2.6 mg/dL (2.5-4.9); THYROID STIMULATING HORMONE 0.96 uIU/mL (0.34-3.74)
[2019-06-10] MEDS: ALBUTEROL SULFATE/IPRATROPIU 3 ML SOL IH PRN (20:14)
[2019-06-10] MEDS: BUDESONIDE 0.25 MG/2 ML NEBU INH SCH (20:14)
--- NOTE | 2019-06-10 20:40 | NUR ---
RECEIVED PATIENT ON 2L NASAL CANNULA, PULSE OX 97%. SCHEDULED BREATHING TREATMENT + PRN TX ADMINISTERED. TOLERATED TXs WELL WITHOUT ADVERSE SIDE EFFECTS. EDUCATED PATIENT ON USE OF INCENTIVE SPIROMETER. PATIENT PERFORMED WITH FAIR EFFORT. WILL CONTINUE TO ENCOURAGE AND REINFORCE USAGE OF EQUIPMENT. NO ACUTE DISTRESS NOTED AT THIS TIME. WILL CONTINUE TO MONITOR.
[2019-06-10] MEDS ORDERED: AZITHROMYCIN 500 MG INJ VIAL IV ONE (20:55)
[2019-06-10] MEDS ORDERED: AZITHROMYCIN 500 MG in DEXTROSE 5% 250 ML IV SCH (21:00)
[2019-06-10] MEDS: methylPREDNISolone SS 125 MG/2 ML VIAL IVP SCH (21:15)
--- NOTE | 2019-06-10 21:15 | NUR ---
DUE MEDICATION ADMINISTERED, PT TOLERATED WELL, TALKED TO DR. LEONG REGARDING D/C AZITHROMYCIN ORDER, STATED TO NOT GIVE, MEDICATION RETURNED.
[2019-06-10] MEDS: NACL 0.9% 1,000 ML IV SCH (21:16)
[2019-06-11] VITALS: BP 120/69
--- NOTE | 2019-06-11 00:20 | NUR ---
CHECKED ON PT , PT SLEEPING, NO DISTRESS NOTED, CALL LIGHT WITHIN REACH, WILL CONTINUE TO MONITOR.
[2019-06-11] MEDS: ALBUTEROL SULFATE/IPRATROPIU 3 ML SOL IH PRN ×2 (01:44→05:06)
--- NOTE | 2019-06-11 01:54 | NUR ---
PRN BREATHING TREATMENT ADMINISTERED. TOLERATED TX WELL WITHOUT ADVERSE SIDE EFFECTS. NO ACUTE DISTRESS NOTED AT THIS TIME. WILL CONTINUE TO MONITOR.
--- NOTE | 2019-06-11 02:22 | NUR ---
CHECKED ON PT, PT SLEEPING, NO DISTRESS NOTED, CALL LIGHT WIHTIN REACH, WILL CONTINUE TO MONITOR.
[2019-06-11 04:00] VITALS: BP 139/96
--- NOTE | 2019-06-11 04:10 | NUR ---
PT RESTING, NO DISTRESS NOTED, CALL LIGHT WITHIN REACH, V/S TAKEN, WNL, WILL CONTINUE TO MONITOR.
[2019-06-11] MEDS: HYDROcodone/APAP 5/325 MG 1 TAB TAB PO PRN ×2 (04:43→20:25)
[2019-06-11] MEDS: methylPREDNISolone SS 125 MG/2 ML VIAL IVP SCH ×2 (04:46→12:34)
--- NOTE | 2019-06-11 05:00 | NUR ---
PT C/O SOB, RT CALLED, RT CAME AND RT AT BEDSIDE, WILL ADMINISTER BREATHING TX FOR PT.
[2019-06-11 05:48] LABS: APPEARANCE,URINE CLEAR (CLEAR); BILIRUBIN,URINE NEGATIVE (NEGATIVE); BLOOD, URINE NEGATIVE (NEGATIVE); COLOR,URINE YELLOW (YELLOW); LEUKOCYTE ESTERASE ,URINE NEGATIVE (NEGATIVE); NITRITE, URINE NEGATIVE (NEGATIVE); PH,URINE 6.5 (5.0-9.0); UGLUCOSE 1+ (NEGATIVE)
[2019-06-11 05:56] LABS: BASOPHILS % (AUTO) 0.1 % (0.0-2.0); HEMOGLOBIN 13.5 g/dL (12.0-16.0); LYMPHOCYTES # (AUTO) 0.3 K/uL (2.5-16.5); LYMPHOCYTES % (AUTO) 3.4 % (20.5-51.1); MEAN CORPUSCULAR HEMOGLOBIN 27 pg (27-31); MEAN CORPUSCULAR HGB CONC 33 g/dL (33-37); MEAN CORPUSCULAR VOLUME 82.3 fL (80-94); MONOCYTES # (AUTO) 0.2 K/uL (0.8-1.0); NEUTROPHILS # (AUTO) 9.1 K/uL (1.8-7.7); NEUTROPHILS % (AUTO) 94.5 % (42.2-75.2); PLATELET COUNT (AUTO) 278 K/uL (140-450); RED BLOOD CELL COUNT(AUTO) 4.99 MIL/uL (4.20-5.40); RED CELL DISTRIBUTION WIDTH 14.6 % (11.6-13.7); WHITE BLOOD COUNT (AUTO) 9.7 K/uL (4.8-10.8)
[2019-06-11 05:58] LABS: ANION GAP 12.4 (8-16); CARBON DIOXIDE 26.4 mmol/L (21-32); CREATININE 0.6 mg/dL (0.6-1.3); POTASSIUM 3.8 mmol/L (3.5-5.1)
[2019-06-11] MEDS ORDERED: ALBUTEROL SULFATE/IPRATROPIU 3 ML SOL IH SCH (06:00)
[2019-06-11 06:01] LABS: MAGNESIUM 2.3 mg/dL (1.8-2.4)
[2019-06-11 06:05] LABS: BARBITURATE, URINE NEG. ng/ml (NEG <=200); BENZODIAZEPINE, URINE NEG. ng/mL (NEG <=200); CANNABINOID, URINE NEG. ng/mL (NEG <=50); COCAINE, URINE NEG. ng/mL (NEG <=300); OPIATE, URINE NEG. ng/mL (NEG <=2000); PHENCYCLIDINE SCREEN,URINE NEG. ng/mL (NEG <=25)
--- NOTE | 2019-06-11 06:27 | NUR ---
PATIENT HAS BEEN SCREENED AND CATEGORIZED LOW NUTRITION RISK. PATIENT WILL BE SEEN WITHIN 7 DAYS OF ADMISSION. 06/18/19 JOSIAH BENAVIDES MS, RDN
--- NOTE | 2019-06-11 07:12 | NUR ---
ENDORSED PT TO DAY SHIFT NURSE SKYLA RN, PT STABLE, NO DISTRESS NOTED, CALL LIGHT WITHIN REACH.
--- NOTE | 2019-06-11 07:30 | NUR ---
Received report from night clerk nurse. Pt is in bed in stable condition. Call light in reach
[2019-06-11 08:00] VITALS: BP 141/89
[2019-06-11] MEDS: ALBUTEROL SULFATE/IPRATROPIU 3 ML SOL IH SCH ×4 (08:22→22:03)
[2019-06-11] MEDS: BUDESONIDE 0.25 MG/2 ML NEBU INH SCH ×2 (08:22→21:00)
[2019-06-11] MEDS: FAMOTIDINE 20 MG TAB PO SCH (08:37)
[2019-06-11] MEDS: MONTELUKAST SODIUM 10 MG TAB PO SCH (08:38)
[2019-06-11] MEDS: LORATADINE 10 MG TAB PO SCH (08:38)
[2019-06-11] MEDS ORDERED: amLODIPine 5 MG TAB PO SCH (09:00)
--- NOTE | 2019-06-11 09:30 | NUR ---
Pt is resting in bed in stable condition. No signs of distress noted. No complains of pain. Call light in reach.
--- NOTE | 2019-06-11 11:30 | NUR ---
Pt is resting in bed in stable condition. No complains of pain. No signs of distress noted. Call light in reach.
--- NOTE | 2019-06-11 11:50 | NUR ---
DURING INCENTIVE SPIROMETRY PATIENT PRESENTING WITH PERSISTENT COUGH COMPLETED ONLY 3 BREATH HOLDS GOOD TECHNIQUE ENCOURAGED PATIENT WITH ACKNOWLEDGEMENT TO USE INCENTIVE SPIROMETRY EVERY 1-2 HOURS WHILE AWAKE
[2019-06-11 12:00] VITALS: BP 129/81
[2019-06-11] MEDS: NACL 0.9% 1,000 ML IV SCH ×2 (12:33→23:24)
--- NOTE | 2019-06-11 14:43 | NUR ---
Pt is resting in bed in stable condition. Call light in reach.
[2019-06-11 16:00] VITALS: BP 146/84
--- NOTE | 2019-06-11 17:38 | NUR ---
Pt is resting in bed in stable condition. No signs of distress noted. No complains of pain. Call light in reach.
--- NOTE | 2019-06-11 19:25 | NUR ---
Shift report given to film processing shift supervisor nurse. Pt is in bed in stable condition. Call light in reach.
--- NOTE | 2019-06-11 19:26 | NUR ---
RECEIVED BEDSIDE REPORT FROM DAY RN, PT IS AAOX4. PT ON 2L O2 VIA NC. RESPIRATIONS ARE EQUAL AND UNLABORED. LUNG SOUNDS CLEAR. PT ON BREATHING TX. IV TO R AC 20G PATENT INTACT, INFUSING WELL. IS AT BEDSIDE. POC DISCUSSED WITH PT AND SPOUSE. ALL NEEDS MET AT THIS TIME. CALL LIGHT IS WITHIN REACH. WILL ROUND FREQUENTLY.
[2019-06-11 20:00] VITALS: BP 145/85
[2019-06-11] MEDS: methylPREDNISolone SS 40 MG/ML VIAL IVP SCH (20:25)
--- NOTE | 2019-06-11 20:25 | NUR ---
VITAL SIGNS ARE WITHIN NORMAL LIMITS. LIO MEDICATIONS GIVEN. PRN NORCO GIVEN FOR HEADACHE 5/10 PER ORDERS. ALL NEEDS MET AT THIS TIME. CALL LIGHT IS WITHIN REACH.
--- NOTE | 2019-06-11 22:15 | NUR ---
PATIENT RESTING COMFORTABLY IN BED USING CELL PHONE. NO S/S OF DISTRESS NOTED. WILL CONTINUE TO MONITOR.
[2019-06-12] VITALS: BP 133/87
--- NOTE | 2019-06-12 | NUR ---
VITAL SIGNS ARE WITHIN NORMAL LIMITS. ALL NEEDS MET AT THIS TIME. CALL LIGHT IS WITHIN REACH.
--- NOTE | 2019-06-12 02:15 | NUR ---
PATIENT IS SLEEPING IN BED EYES CLOSED. CHEST RISE AND FALL. NO S/S OF DISTRESS. SAFETY MEASURES ARE IN PLACE. CALL LIGHT IS WITHIN REACH. WILL CONTINUE TO MONITOR.
[2019-06-12 04:00] VITALS: BP 128/81
--- NOTE | 2019-06-12 04:20 | NUR ---
VITAL SIGNS ARE WITHIN NORMAL LIMITS. ALL NEEDS MET AT THIS TIME. WILL CONTINUE TO MONITOR.
[2019-06-12] MEDS: methylPREDNISolone SS 40 MG/ML VIAL IVP SCH ×2 (04:32→13:24)
[2019-06-12 06:06] LABS: BASOPHILS % (AUTO) 0.1 % (0.0-2.0); EOSINOPHILS % (AUTO) 0.1 % (0.0-4.0); HEMATOCRIT 39.7 % (36-48); HEMOGLOBIN 12.7 g/dL (12.0-16.0); LYMPHOCYTES # (AUTO) 0.7 K/uL (2.5-16.5); LYMPHOCYTES % (AUTO) 5.5 % (20.5-51.1); MEAN CORPUSCULAR HEMOGLOBIN 27 pg (27-31); MEAN CORPUSCULAR HGB CONC 32 g/dL (33-37); MONOCYTES % (AUTO) 7.9 % (1.7-9.3); NEUTROPHILS # (AUTO) 11.1 K/uL (1.8-7.7); NEUTROPHILS % (AUTO) 86.4 % (42.2-75.2); PLATELET COUNT (AUTO) 293 K/uL (140-450); RED BLOOD CELL COUNT(AUTO) 4.78 MIL/uL (4.20-5.40); RED CELL DISTRIBUTION WIDTH 14.5 % (11.6-13.7); WHITE BLOOD COUNT (AUTO) 12.8 K/uL (4.8-10.8)
[2019-06-12 06:37] LABS: ANION GAP 12.3 (8-16); CARBON DIOXIDE 28.1 mmol/L (21-32); CREATININE 0.5 mg/dL (0.6-1.3); POTASSIUM 4.4 mmol/L (3.5-5.1)
[2019-06-12 06:45] LABS: MAGNESIUM 2.1 mg/dL (1.8-2.4)
--- NOTE | 2019-06-12 07:19 | NUR ---
GAVE BEDSIDE REPORT TO DAY RN. PT ENDORSED IN STABLE CONDITION.
--- NOTE | 2019-06-12 07:20 | NUR ---
RECEIVED BEDSIDE REPORT FROM FACTORY HAND NURSE. PT WAS SLEEPING IN BED. SKIN IS INTACT, IV IS CLEAN, INTACT. BREATHING IS EVEN AND UNLABORED, PT IS ON 2L O2 NC. NO SIGNS OF DISTRESS NOTED AT THIS TIME. DENIES PAIN. TELE MONITOR ATTACHED. SAFETY MEASURES ASSESSED, BED IN LOW POSITION AND CALL LIGHT WITHIN REACH. EDUCATED PT TO USE CALL LIGHT FOR ANY ASSISTANCE. PT VERBALIZED UNDERSTANDING.
[2019-06-12] MEDS: BUDESONIDE 0.25 MG/2 ML NEBU INH SCH ×2 (07:37→20:32)
[2019-06-12] MEDS: ALBUTEROL SULFATE/IPRATROPIU 3 ML SOL IH SCH ×4 (07:37→20:32)
[2019-06-12 08:00] VITALS: BP 126/78
[2019-06-12] MEDS: FAMOTIDINE 20 MG TAB PO SCH (08:27)
[2019-06-12] MEDS: LORATADINE 10 MG TAB PO SCH (08:27)
[2019-06-12] MEDS: MONTELUKAST SODIUM 10 MG TAB PO SCH (08:27)
--- NOTE | 2019-06-12 09:15 | NUR ---
PT SLEEPING IN BED. NO SIGNS OF DISTRESS NOTED. ON 2L NC 02. BREATHING EVEN AND UNLABORED. BED IS IN LOW POSITION AND CALL LIGHT WITHIN REACH. WILL CONTINUE TO MONITOR.
--- NOTE | 2019-06-12 10:54 | NUR ---
DISCHARGE PLANNIN39 Y/O FEMALE PATIENT FROM HOME, WHO CAME IN DUE TO SOB X 1 DAY. PAST MEDICAL HISTORY INCLUDE ASTHMA AND HTN. INITIAL DIAGNOSIS OF STATUS ASTHMATICUS. CURRENT LABS INCLUDE WBC 12.8, H/H 12.7/39.7. ON SOLU MEDROL AND BREATHING TREATMENT. CXR ON ADMISSION - NORMAL. PULMO CONSULT WITH DR. EUGNEE FOR ASTHMA EXACERBATION. DC PLAN TO HOME ONCE STABLE.
--- NOTE | 2019-06-12 11:05 | NUR ---
PT RESTING IN BED. DENIES PAIN AT THIS TIME. BREATHING IS EVEN AND UNLABORED. BED IN LOW POSITION, CALL LIGHT WITHIN REACH. REMINDED PT TO USE CALL LIGHT FOR ANY ASSISTANCE. WILL CONTINUE TO MONITOR.
--- NOTE | 2019-06-12 13:17 | NUR ---
PT RESTING. NO SIGNS OF DISTRESS NOTED. SAFETY MEASURES ASSESSED. REMINDED PT TO USE CALL LIGHT.
--- NOTE | 2019-06-12 15:15 | NUR ---
PT LAYING IN BED. DENIES PAIN. WILL CONTINUE TO MONITOR
--- NOTE | 2019-06-12 15:27 | NUR ---
SATURATION 97% ON SUPPLEMENTAL OXYGEN AT 2 LPM VIA NC POST HHN THERAPY TITRATED FIO2 TO ROOM AIR ENGINEERING SUPERVISOR TO MONITOR JOE/RN NOTIFIED
--- NOTE | 2019-06-12 15:45 | NUR ---
SATURATION 95% ON ROOM AIR JOE/RN NOTIFIED
[2019-06-12] MEDS: NACL 0.9% 1,000 ML IV SCH (17:24)
--- NOTE | 2019-06-12 19:07 | NUR ---
GAVE BEDSIDE REPORT TO BILLET CUTTER NURSE. PT IN STABLE CONDITION.
--- NOTE | 2019-06-12 19:29 | NUR ---
RECEIVED BEDSIDE REPORT FROM DAY SHIFT NURSE. PATIENT IS AWAKE, ALERT, AND COOPERATIVE. RESPIRATION EVEN UNLABORED ON ROOM AIR. NO DISTRESS NOTED. SKIN IS WARM AND DRY. IV PATENT AND INTACT. PLAN OF CARE DISCUSSED ALL SAFETY MEASURES IN PLACE. FAMILY AT BEDSIDE. BED IS AT LOW POSITION. CALL LIGHT WITHIN REACH AND VERBALIZES ITS USE. WILL CONTINUE TO MONITOR.
[2019-06-12 20:00] VITALS: BP 130/77
--- NOTE | 2019-06-12 20:10 | NUR ---
INITIAL ASSESSMENT DONE. VITALS WERE TAKEN. PATIENT IN STABLE CONDITION. WILL CONTINUE TO MONITOR
--- NOTE | 2019-06-12 20:10 | NUR ---
INITIAL ASSESSMENT DONE. VITALS WERE TAKEN. PATIENT IN STABLE CONDITION. DR. LOPEZ AT BEDSIDE. WILL CONTINUE TO MONITOR Addendum: 06/12/19 at 2035 by Herman Bo RN WRONG PATIENT
[2019-06-12] MEDS: HYDROcodone/APAP 5/325 MG 1 TAB TAB PO PRN (21:00)
--- NOTE | 2019-06-12 21:00 | NUR ---
PATIENT COMPLAINED OF HEADACHE 6/10 PRN PAIN MED ADMINISTERED PER ORDER. WILL CONTINUE TO MONITOR.
[2019-06-12] MEDS: guaiFENesin 20 MG/ML UDC PO PRN (21:53)
--- NOTE | 2019-06-12 21:54 | NUR ---
PATIENT COMPLAINED OF COUGH. PRN COUGH MEDICINE GIVEN PER ORDER. WILL CONTINUE TO MONITOR.
--- NOTE | 2019-06-12 23:36 | NUR ---
CHECKED PATIENT. PATIENT SLEEPING RESPIRATION EVEN UNLABORED ON ROOM AIR. NO DISTRESS NOTED. WILL CONTINUE TO MONITOR.
[2019-06-13] VITALS: BP 128/65
--- NOTE | 2019-06-13 00:05 | NUR ---
VITALS WERE TAKEN. PATIENT IN STABLE CONDITION. PRN COUGH WORKED PATIENT VERBALIZE REDUCE COUGHING. WILL CONTINUE TO MONITOR.
--- NOTE | 2019-06-13 02:09 | NUR ---
CHECKED PATIENT. PATIENT SLEEPING RESPIRATION EVEN UNLABORED ON ROOM AIR. NO DISTRESS NOTED. WILL CONTINUE TO MONITOR.
--- NOTE | 2019-06-13 04:15 | NUR ---
VITALS WERE TAKEN. PATIENT IN STABLE CONDITION. NO DISTRESS NOTED. WILL CONTINUE TO MONITOR.
[2019-06-13] MEDS: ALBUTEROL SULFATE/IPRATROPIU 3 ML SOL IH SCH ×3 (06:51→15:58)
[2019-06-13] MEDS: BUDESONIDE 0.25 MG/2 ML NEBU INH SCH (06:53)
--- NOTE | 2019-06-13 07:11 | NUR ---
ENDORSED PATIENT TO DAY SHIFT NURSE. PATIENT IN STABLE CONDITION.
--- NOTE | 2019-06-13 07:24 | NUR ---
RECEIVED REPORT FROM CREW CALLER NURSE FOR CONTINUITY OF CARE, BED IN LOW POSITION, PATIENT IS SLEEPING, OBSERVED CHEST RISE AND FALL. WILL CONTINUE TO MONITOR.
[2019-06-13] MEDS ORDERED: ALBU0.0912 IH (08:04)
[2019-06-13] MEDS ORDERED: LORA10TA19 PO (08:04)
[2019-06-13] MEDS ORDERED: MONT10TA35 PO (08:04)
[2019-06-13] MEDS: MONTELUKAST SODIUM 10 MG TAB PO SCH (09:25)
[2019-06-13] MEDS: FAMOTIDINE 20 MG TAB PO SCH (09:25)
[2019-06-13] MEDS: LORATADINE 10 MG TAB PO SCH (09:25)
[2019-06-13] MEDS: guaiFENesin 20 MG/ML UDC PO PRN (09:26)
--- NOTE | 2019-06-13 10:00 | NUR ---
PATIENT IS RESTING IN BED, ROBITUSSIN ADMINISTERED FOR UNPRODUCTIVE COUGH, DISCHARGE ORDER IN. PREPARING FOR DISCHARGE HOME.
[2019-06-13] MEDS ORDERED: PRED10TA6 PO ×4 (11:59→17:49)
[2019-06-13 12:00] VITALS: BP 141/88
--- NOTE | 2019-06-13 12:30 | NUR ---
WAITING FOR PATIENTS RIDE TO HOST/HOSTESS, HOST/HOSTESS TIME IS AT 1800 PER PATIENTS RIDE. PATIENT IS SLEEPING IN BED, NO PAIN AT THIS TIME. WILL CONTINUE TO MONITOR.
[2019-06-13] MEDS: NACL 0.9% 1,000 ML IV SCH (13:40)
--- NOTE | 2019-06-13 15:00 | NUR ---
PATIENT RESTING IN BED, BED IN LOW POSITION, CALL LIGHT ON AND WITHIN REACH. WILL CONTINUE TO MONITOR.
--- NOTE | 2019-06-13 17:31 | NUR ---
NO SIGNS OF DISTRESS NOTED, CALL LIGHT ON AND WITHIN REACH. WILL CONTINUE TO MONITOR.
--- NOTE | 2019-06-13 18:00 | NUR ---
PATIENT DISCHARGED FROM [facility] IN MEDICALLY STABLE CONDITION, WITH ALL BELONGINGS, IV WAS REMOVED FROM RIGHT AC, PAPERWORK RECEIVED.
== END 2019-06-13 18:00 | disposition home or self-care (01) | DRG 141 ==
LOC: MED 14:19 → MMU 18:33
PROVIDERS: ADMIT General Practice; ATTEND General Practice
DX: J45.901 Unspecified asthma with (acute) exacerbation (principal); E44.0 Moderate protein-calorie malnutrition; R65.10 Systemic inflammatory response syndrome (SIRS) of non-infectious origin without acute organ dysfunction; E66.9 Obesity, unspecified; I10 Essential (primary) hypertension; E78.5 Hyperlipidemia, unspecified; D72.829 Elevated white blood cell count, unspecified; Z68.33 Body mass index [BMI] 33.0-33.9, adult; Z91.19 Patient's noncompliance with other medical treatment and regimen
CPT/HCPCS: 36415; 36600; 71045; 80048; 80053; 80305; 81003; 82803; 83036; 83690; 83735; 83880; 84100; 84134; 84443; 84484; 84703; 85025; 85379; 85610; 85730; 87040; 87070; 87081; 87086; 87205; 87804; 93005; 94640; 96372; 96374; 96375; 99285; J0171; J0456; J1100; J1200; J2060; J2405; J2920; J2930; J3475; J3490; J7030; J7060; J7620; J7626

== ENCOUNTER 2021-02-17 18:36 | Emergency (ER) | payer MEDICAID ==
[~2021-02-17] VITALS: Ht 153.7 cm; Wt 78.9 kg
[~2021-02-17 18:36] MED LIST changes: +ALBU0.0912 IH; -AZIT250T3 PO; -BUDE1AER IH; +LORA10TA19 PO; +MONT10TA35 PO; +PRED10TA6 PO; -PRED20TA5 PO
[2021-02-17 18:58] VITALS: BP 90/54
[2021-02-17 20:50] LABS: BASOPHILS % (AUTO) 0.2 % (0.0-2.0); EOSINOPHILS # (AUTO) 0.2 K/uL (0-0.4); EOSINOPHILS % (AUTO) 1.6 % (0.0-4.0); HEMATOCRIT 39.8 % (36-48); HEMOGLOBIN 13.2 g/dL (12.0-16.0); LYMPHOCYTES # (AUTO) 2.1 K/uL (2.5-16.5); MEAN CORPUSCULAR HEMOGLOBIN 27 pg (27-31); MEAN CORPUSCULAR HGB CONC 33 g/dL (33-37); MEAN CORPUSCULAR VOLUME 82.2 fL (80-94); MONOCYTES # (AUTO) 0.6 K/uL (0.8-1.0); MONOCYTES % (AUTO) 5.6 % (1.7-9.3); NEUTROPHILS # (AUTO) 7.5 K/uL (1.8-7.7); NEUTROPHILS % (AUTO) 72.6 % (42.2-75.2); PLATELET COUNT (AUTO) 229 K/uL (140-450); RED BLOOD CELL COUNT(AUTO) 4.84 MIL/uL (4.20-5.40); RED CELL DISTRIBUTION WIDTH 13.9 % (11.6-13.7); WHITE BLOOD COUNT (AUTO) 10.3 K/uL (4.8-10.8)
[2021-02-17 20:57] LABS: BILIRUBIN,URINE NEGATIVE (NEGATIVE); BLOOD, URINE 3+ (NEGATIVE); COLOR,URINE YELLOW (YELLOW); LEUKOCYTE ESTERASE ,URINE 2+ (NEGATIVE); NITRITE, URINE POSITIVE (NEGATIVE); UGLUCOSE NEGATIVE (NEGATIVE)
[2021-02-17 21:02] LABS: APPEARANCE,URINE HAZY (CLEAR)
[2021-02-17 21:14] LABS: RBC,URINE 20-50 /HPF (0-5); WBC,URINE TOO MANY TO COUNT /HPF (0-5)
[2021-02-17 21:16] LABS: ANION GAP 4.6 (8-16); CARBON DIOXIDE 32.2 mmol/L (21-32); CREATININE 0.6 mg/dL (0.6-1.3); POTASSIUM 3.8 mmol/L (3.5-5.1); TOTAL BILIRUBIN 0.6 mg/dL (0.0-1.0)
[2021-02-17] MEDS ORDERED: SULF-59 PO (21:49)
[2021-02-17] MEDS ORDERED: PHEN-1877 PO (21:49)
--- NOTE | 2021-02-17 21:59 | NUR ---
d/c with [facility]. d/c education given. opportunity to ask questions given and answered. rx of bactrim and pyridium given.
== END 2021-02-17 21:58 | disposition home or self-care (01) ==
LOC: MED 18:36
DX: N39.0 Urinary tract infection, site not specified (principal); J45.909 Unspecified asthma, uncomplicated; I10 Essential (primary) hypertension; Z79.899 Other long term (current) drug therapy
CPT/HCPCS: 36415; 76856; 80053; 81001; 83690; 84703; 85025; 87086; 99284; Q0092

== ENCOUNTER 2021-02-19 00:56 | Emergency (ER) | payer MEDICAID ==
[~2021-02-19] VITALS: Ht 154.9 cm; Wt 81.0 kg
[~2021-02-19 00:56] MED LIST changes: +PHEN-1877 PO; +SULF-59 PO
[2021-02-19 01:10] VITALS: BP 139/90
--- NOTE | 2021-02-19 01:13 | NUR ---
to lobby a/w bed ambulatory
--- NOTE | 2021-02-19 01:20 | NUR ---
seen and examined by vadim
[2021-02-19] MEDS ORDERED: CYCLOBENZAPRINE 10 MG TAB PO ONE (01:25)
[2021-02-19] MEDS ORDERED: KETOROLAC 30 MG/ML VIAL IM ONE (01:25)
--- NOTE | 2021-02-19 01:40 | NUR ---
medicated as per ermds order, tolerated well.
--- NOTE | 2021-02-19 05:00 | NUR ---
result back and noted by ermd and for d/c
[2021-02-19] MEDS ORDERED: CYCL-711 PO (05:11)
[2021-02-19] MEDS ORDERED: IBUP-2218 PO (05:11)
[2021-02-19 05:20] VITALS: BP 119/89
--- NOTE | 2021-02-19 05:20 | NUR ---
Patient discharged with v/s stable. Written and verbal after care instructions given and explained. Patient alert, oriented and verbalized understanding of instructions. Ambulatory with steady gait. All questions addressed prior to discharge. ID band removed. Patient advised to follow up with PMD. Rx of ibuprofen, flexirel given. Patient educated on indication of medication including possible reaction and side effects. Opportunity to ask questions provided and answered.
== END 2021-02-19 05:20 | disposition home or self-care (01) ==
LOC: MED 00:56
DX: M54.2 Cervicalgia (principal); J45.909 Unspecified asthma, uncomplicated; I10 Essential (primary) hypertension; Z79.899 Other long term (current) drug therapy
CPT/HCPCS: 72050; 81025; 96372; 99283; J1885